=== PATIENT | male | born 1995 | race Caucasian/White ===

== ENCOUNTER 2021-10-18 22:27 | Emergency (ER) | payer BC ==
[2021-10-18 22:44] VITALS: BP 141/79; PULSE 95; TEMP 98.1; BMI 27.1
== END 2021-10-19 00:47 | disposition home or self-care (01) ==
LOC: JER 22:27
DX: S02.2XXA Fracture of nasal bones, initial encounter for closed fracture (principal); S00.83XA Contusion of other part of head, initial encounter; Y04.0XXA Assault by unarmed brawl or fight, initial encounter
CPT/HCPCS: 70450-TC; 70486-TC; 72125-TC; 99284-25